=== PATIENT | female | born 1965 | race Caucasian/White ===

== ENCOUNTER 2019-02-26 07:24 | Day surgery (SDC) | payer OTHER ==
[~2019-02-26 07:24] MED LIST: CEFAZOLIN 2 GM/50 ML (PMX) 50 ML IVPB; MEPERIDINE 25 MG INJ; SOD CHLORIDE 0.9% 1,000 ML IV
[2019-02-26] MEDS ORDERED: PROPOFOL 100 ML (11:10)
[2019-02-26] MEDS ORDERED: LIDOCAINE 2% (SDV) 5 ML INJ (11:10)
[2019-02-26] MEDS ORDERED: ROCURONIUM 50 MG INJ (11:10)
[2019-02-26] MEDS ORDERED: POLYMYXIN/BACITRACIN 1L IRRIG (11:12)
[2019-02-26] MEDS ORDERED: BUPIVACAINE 0.25% (MPF) 30 ML INJ (11:12)
[2019-02-26] MEDS ORDERED: CEFAZOLIN 1 GM INJ (11:33)
[2019-02-26] MEDS ORDERED: ONDANSETRON 4 MG INJ ×2 (11:33→12:03)
[2019-02-26] MEDS ORDERED: DEXAMETHASONE 4 MG/ML 5 ML INJ (11:33)
[2019-02-26] MEDS: BUPIVACAINE 0.25% (MPF) 30 ML INJ INJ (11:49)
[2019-02-26] MEDS ORDERED: SUGAMMADEX SODIUM 200 MG/2 ML VIAL IV (12:04)
[2019-02-26] MEDS ORDERED: HYDROCODONE/APAP (5/325) TAB PO (12:30)
[2019-02-26] MEDS ORDERED: METOCLOPRAMIDE 10 MG INJ IV (12:30)
[2019-02-26] MEDS ORDERED: FENTAnyl 50 MCG/ML VIAL IV ×2 (12:30)
[2019-02-26] MEDS ORDERED: hydrALAzine 20 MG INJ IV (12:30)
[2019-02-26] MEDS ORDERED: EPHEDrine 25 MG/5 ML SYG IV (12:30)
[2019-02-26] MEDS ORDERED: KETOROLAC 30 MG INJ IV (12:30)
[2019-02-26] MEDS ORDERED: OXYCODONE/ACETAMINOPHEN (5/325) TAB PO (12:30)
[2019-02-26] MEDS ORDERED: MEPERIDINE 25 MG INJ IV (12:30)
[2019-02-26] MEDS ORDERED: DIPHENHYDRAMINE 50 MG INJ IV (12:30)
[2019-02-26] MEDS ORDERED: ONDANSETRON 4 MG INJ IV (12:30)
[2019-02-26] MEDS ORDERED: ALBUTEROL 0.083% (NEB) 2.5 MG/3 ML AMP HHN (12:30)
[2019-02-26] MEDS ORDERED: LABETALOL HCL 20MG INJ IV (12:30)
[2019-02-26] MEDS: FENTAnyl 50 MCG/ML VIAL IV (13:01)
[2019-02-26] MEDS: OXYCODONE/ACETAMINOPHEN (5/325) TAB PO (14:30)
== END 2019-02-26 14:40 | disposition home or self-care (01) ==
LOC: SDS 07:24
DX: K43.0 Incisional hernia with obstruction, without gangrene (principal); E78.5 Hyperlipidemia, unspecified
CPT/HCPCS: 49655

== ENCOUNTER 2019-03-12 08:20 | Emergency (ER) | payer OTHER | END 2019-03-12 08:47 | disposition home or self-care (01) | LOC: FTE 08:20 | DX: Z48.02 Encounter for removal of sutures (principal) | CPT/HCPCS: 99282; Z7502 ==